=== PATIENT | female | born 1985 | race Caucasian/White ===

== ENCOUNTER 2018-02-11 04:45 | Inpatient (IN) | payer BC ==
[2018-02-11] MEDS ORDERED: Sodium Chloride 0.9% 10 ML Syringe FLUSH PRN (12:34)
[2018-02-11] MEDS ORDERED: Oxytocin/Lactated Ringers 10 UNIT/1,000 ML BAG IV SCH (12:45)
[2018-02-11] MEDS: Misoprostol 25 MCG (1/4 of 100 MCG) Tab VAG SCH (13:15)
[2018-02-11] MEDS ORDERED: Ondansetron 4 MG/2 ML SDV IVPUSH PRN (15:07)
[2018-02-11] MEDS ORDERED: ePHEDrine 50 MG/ML SDV IVPUSH PRN (15:07)
[2018-02-11] MEDS ORDERED: fentaNYL 100 MCG/2 ML SDV EPIDUR PRN (15:07)
--- NOTE | 2018-02-11 15:13 | PCM.PREANE ---
Preanesthetic Assessment - Anesthesia/Transfusion/Family Hx Anesthesia History: No Prior Anesthesia Family History of Anesthesia Reaction: No Transfusion History: No Prior Transfusion(s) Intubation History: Unknown - Review of Systems General: No Symptoms Pulmonary: No Symptoms Cardiovascular: No Symptoms (Gestational HTN) Gastrointestinal: No Symptoms Neurological: No Symptoms Other: Reports: None - Physical Assessment NPO Status Date: 02/11/18 NPO Status Time: 16:45 Pulse: 100 O2 Sat by Pulse Oximetry: 98 Respiratory Rate: 16 Blood Pressure: 124/77 Temperature: 36.9 C Vital Signs: Last Vital Signs Temp 36.9 C 02/11/18 13:30 Pulse 100 02/11/18 13:30 Resp 16 02/11/18 13:30 BP 154/74 H 02/11/18 13:30 Pulse Ox 98 02/11/18 13:30 Height: 1.68 m Weight: 81.42 kg ASA Class: 2 Mental Status: Alert & Oriented x3 Airway Class: Mallampati = 2 Dentition: Reports: Normal Dentition, Caries Thyro-Mental Finger Breadths: 3 Mouth Opening Finger Breadths: 3 ROM/Head Extension: Full Lungs: Clear to Auscultation, Normal Respiratory Effort Cardiovascular: Regular Rate, Regular Rhythm, No Murmurs - Lab Values: Laboratory Last Values WBC 12.74 K/mm3 (3.98-10.04) H 02/11/18 12:55 RBC 4.50 M/mm3 (3.98-5.22) 02/11/18 12:55 Hgb 14.5 gm/L (11.2-15.7) 02/11/18 12:55 Hct 42.7 % (34.1-44.9) 02/11/18 12:55 MCV 94.9 fl (79.4-94.8) H 02/11/18 12:55 MCH 32.2 pg (25.6-32.2) 02/11/18 12:55 MCHC 34.0 g/dl (32.2-35.5) 02/11/18 12:55 RDW Std Deviation 48.2 fL (36.4-46.3) H 02/11/18 12:55 Plt Count 185 K/mm3 (182-369) 02/11/18 12:55 MPV 10.1 fl (9.4-12.3) 02/11/18 12:55 Neut % (Auto) 81.3 % (34.0-71.1) H 02/11/18 12:55 Lymph % (Auto) 11.5 % (19.3-51.7) L 02/11/18 12:55 [place] % (Auto) 5.9 % (4.7-12.5) 02/11/18 12:55 Eos % (Auto) 0.3 (0.7-5.8) L 02/11/18 12:55 Baso % (Auto) 0.2 % (0.1-1.2) 02/11/18 12:55 Neut # (Auto) 10.37 K/mm3 (1.56-6.13) H 02/11/18 12:55 Lymph # (Auto) 1.46 K/mm3 (1.18-3.74) 02/11/18 12:55 [place] # (Auto) 0.75 K/mm3 (0.24-0.36) H 02/11/18 12:55 Eos # (Auto) 0.04 K/mm3 (0.04-0.36) 02/11/18 12:55 Baso # (Auto) 0.02 K/mm3 (0.01-0.08) 02/11/18 12:55 All labs reviewed and noted and within acceptable ranges to proceed with epidural if desired. - Allergies Allergies/Adverse Reactions: Allergies Allergy/AdvReac Type Severity Reaction Status Date / Time cat dander Allergy Sneezing Verified 04/03/16 11:00 lactose AdvReac Stomach Verified 04/03/16 11:02 Ache - Anesthesia Plan Pre-Op Medication Ordered: None - Acknowledgements Anesthesia Type Planned: Epidural Pt an Appropriate Candidate for the Planned Anesthesia: Yes Alternatives and Risks of Anesthesia Discussed w Pt/Guardian: Yes Pt/Guardian Understands and Agrees with Anesthesia Plan: Yes PreAnesthesia Questionnaire - Past Health History Medical/Surgical History: Denies Medical/Surgical History - Infectious Disease History Infectious Disease History: Reports: None - SUBSTANCE USE Smoking Status *Q: Never Smoker Recreational Drug Use History: No - HOME MEDS Home Medications: Home Meds PNV95/Ferrous Fumarate/FA [ Vitamin Tablet] 1 tab PO DAILY 04/03/16 [ History] - CURRENT (IN HOUSE) MEDS Current Meds: Current Medications Lactated Ringer's (Ringers, Lactated) 1,000 mls @ 40 mls/hr IV ASDIRECTED VELVET Oxytocin/Lactated Ringer's (Pitocin In Lr 10 Units/1,000 Ml) 10 unit in 1,000 mls @ 12 mls/hr IV TITRATE VELVET; Protocol Misoprostol (Cytotec) 25 mcg VAG BID VELVET Last Admin: 02/11/18 13:15 Dose: 25 mcg Sodium Chloride (Saline Flush) 10 ml FLUSH ASDIRECTED PRN PRN Reason: Keep Vein Open
--- NOTE | 2018-02-11 17:29 | PCM.LDHP ---
L&D History of Present Illness - General Date of Service: 02/11/18 Admit Problem/Dx: Admission Diagnosis/Problem Admission Diagnosis/Problem 02/11/18 17:23 32 yo at 38 weeks 3days presented to clinic with elevated blood pressures. Home blood pressures 135-160/90. Clinic blood pressure approximately 140 systolic. She describes no headache. She had significant edema yesterday when she woke in the AM. Improved today. Good Movement. No abdominal pain. she has not noted contractions at home. She does have history of induced hypertension without pre eclampsia that did require induction of labor in previous . Based on elevated blood pressures and term gestation at 38 weeks decision was made to proceed with induction of labor for hypertension. Source of Information: Patient History Limitations: Reports: No Limitations - History of Present Illness Location, : Reports: Abdomen Quality: Reports: Ache Severity: Mild - Related Data Allergies/Adverse Reactions: Allergies Allergy/AdvReac Type Severity Reaction Status Date / Time cat dander Allergy Sneezing Verified 04/03/16 11:00 lactose AdvReac Stomach Verified 04/03/16 11:02 Ache Home Medications: Home Meds PNV95/Ferrous Fumarate/FA [ Vitamin Tablet] 1 tab PO DAILY 04/03/16 [ History] Past Medical History - Past Health History Medical/Surgical History: Denies Medical/Surgical History - Infectious Disease History Infectious Disease History: Reports: None Social & Family History - Family History Family Medical History: Noncontributory - Tobacco Use Smoking Status *Q: Never Smoker - Recreational Drug Use Recreational Drug Use: No - Living Situation & Occupation Living situation: Reports: Occupation: Employed H&P Review of Systems - Review of Systems: Review Of Systems: See Below General: Reports: No Symptoms HEENT: Reports: No Symptoms Pulmonary: Reports: No Symptoms Cardiovascular: Reports: No Symptoms Gastrointestinal: Reports: No Symptoms Genitourinary: Reports: No Symptoms Musculoskeletal: Reports: No Symptoms Skin: Reports: No Symptoms Psychiatric: Reports: No Symptoms Neurological: Reports: No Symptoms Hematologic/Lymphatic: Reports: No Symptoms Immunologic: Reports: No Symptoms L&D Exam - Exam Exam: See Below - Vital Signs Vital Signs: Last Vital Signs Temp 36.9 C 02/11/18 16:52 Pulse 100 02/11/18 16:52 Resp 16 02/11/18 16:52 BP 154/74 H 02/11/18 16:52 Pulse Ox 98 02/11/18 16:52 Weight: 81.42 kg - OB Specific Contraction Intensity: Moderate Movement: Active Heart Tones: Present Heart Tones per Min: 140 Heart Rate (FHR) Variability: Moderate (6-25 bmp) Presentation: Vertex - Jiang Score Jiang Score Cervix Position: Midposition Jiang Score Consistency: Soft Jiang Score Effacement: 31-50% Jiang Score Dilation: 3-4 cm Jiang Score Infant's Station: -3 Jiang Score Total: 6 - Exam General: Alert, Oriented GI/Abdominal Exam: Normal Bowel Sounds Genitourinary: Normal external exam Skin: Warm, Dry, Intact - Patient Data Lab Results Last 24 hrs: Laboratory Results - last 24 hr 02/11/18 Range/Units 12:55 WBC 12.74 H (3.98-10.04) K/mm3 RBC 4.50 (3.98-5.22) M/mm3 Hgb 14.5 (11.2-15.7) gm/L Hct 42.7 (34.1-44.9) % MCV 94.9 H (79.4-94.8) fl MCH 32.2 (25.6-32.2) pg MCHC 34.0 (32.2-35.5) g/dl RDW Std Deviation 48.2 H (36.4-46.3) fL Plt Count 185 (182-369) K/mm3 MPV 10.1 (9.4-12.3) fl Neut % (Auto) 81.3 H (34.0-71.1) % Lymph % (Auto) 11.5 L (19.3-51.7) % [place] % (Auto) 5.9 (4.7-12.5) % Eos % (Auto) 0.3 L (0.7-5.8) Baso % (Auto) 0.2 (0.1-1.2) % Neut # (Auto) 10.37 H (1.56-6.13) K/mm3 Lymph # (Auto) 1.46 (1.18-3.74) K/mm3 [place] # (Auto) 0.75 H (0.24-0.36) K/mm3 Eos # (Auto) 0.04 (0.04-0.36) K/mm3 Baso # (Auto) 0.02 (0.01-0.08) K/mm3 Result Diagrams: 02/11/18 12:55 - Problem List (1) induced hypertension SNOMED Code(s): 88103098 ICD Code: O13.9 - GESTATIONAL HTN W/O SIGNIFICANT PROTEINURIA, UNSP TRIMESTER Status: Acute Current Visit: Yes (2) Encounter for induction of labor SNOMED Code(s): 497062693 ICD Code: Z34.90 - ENCNTR FOR SUPRVSN OF NORMAL , UNSP, UNSP TRIMESTER Status: Acute Current Visit: Yes Problem List Initiated/Reviewed/Updated: Yes Orders Last 24hrs: Active Orders 24 hr Category Date Time Status Communication Order [RC] ASDIRECTED Care 02/11/18 12:34 Active Communication Order [RC] ASDIRECTED Care 02/11/18 12:34 Active Communication Order [RC] ASDIRECTED Care 02/11/18 12:34 Active Monitoring [RC] INTERMITTENT Care 02/11/18 12:34 Active Notify Provider [RC] ASDIRECTED Care 02/11/18 12:34 Active Notify Provider [RC] ASDIRECTED Care 02/11/18 15:07 Active Oxygen Therapy [RC] ASDIRECTED Care 02/11/18 15:07 Active Peripheral IV Care [RC] . DIRECTED Care 02/11/18 12:34 Active Pulse Oximetry [RC] ASDIRECTED Care 02/11/18 15:07 Active Vital Signs [RC] ASDIRECTED Care 02/11/18 12:34 Active Regular Diet [DIET] Diet 02/11/18 Lunch Active Bupivacaine/fentaNYL/NS [fentaNYL/Bupivacaine/NS 2.5 Med 02/11/18 15:15 Active MCG-0.1% 50 ML] 50 ml EPIDUR ASDIRECTED Lactated Ringers [Ringers, Lactated] 1,000 ml Med 02/11/18 12:45 Active IV ASDIRECTED Misoprostol [Cytotec] Med 02/11/18 12:45 Active 25 mcg VAG BID Ondansetron [Zofran] Med 02/11/18 15:07 Active 4 mg IVPUSH ONETIME PRN Oxytocin/Lactated Ringers [Pitocin in LR 10 Units/1,000 Med 02/11/18 12:45 Active ML] 10 unit in 1,000 ml IV TITRATE Sodium Chloride 0.9% [Saline Flush] Med 02/11/18 12:34 Active 10 ml FLUSH ASDIRECTED PRN ePHEDrine [ePHEDrine Sulfate] Med 02/11/18 15:07 Active 5 mg IVPUSH ASDIRECTED PRN Peripheral IV Insertion Adult [OM.PC] Routine Oth 02/11/18 12:34 Ordered Saline Lock Insert [OM.PC] Routine Oth 02/11/18 12:34 Ordered Medication Orders Ephedrine Sulfate (Ephedrine Sulfate) 5 mg IVPUSH ASDIRECTED PRN PRN Reason: Hypotension Fentanyl/Bupivacaine HCl (Fentanyl/Bupivacaine/Ns 2.5 Mcg-0.1% 50 Ml) 50 ml EPIDUR ASDIRECTED VELVET Lactated Ringer's (Ringers, Lactated) 1,000 mls @ 40 mls/hr IV ASDIRECTED VELVET Oxytocin/Lactated Ringer's (Pitocin In Lr 10 Units/1,000 Ml) 10 unit in 1,000 mls @ 12 mls/hr IV TITRATE VELVET; Protocol Misoprostol (Cytotec) 25 mcg VAG BID VELVET Last Admin: 02/11/18 13:15 Dose: 25 mcg Ondansetron HCl (Zofran) 4 mg IVPUSH ONETIME PRN PRN Reason: Nausea/Vomiting Sodium Chloride (Saline Flush) 10 ml FLUSH ASDIRECTED PRN PRN Reason: Keep Vein Open Assessment/Plan Comment:: Assessment: 32 yo at 38 weeks 3 days gestation with induced hypertension. Plan: blood pressures increasing to 160/90 at home, 140/80 in clinic. decision made to start induction of labor with cytotec, she has recieved one dose and dilated to 3 cm. will proceed to pitocin when contraction pattern slows. Pt desires epidural. GBS negative. anticipate vaginal delivery.
[2018-02-11] MEDS: Lactated Ringers 1,000 ML IV SCH ×2 (21:19→23:56)
[2018-02-11] MEDS: fentaNYL/Bupivacaine in NS PF 2.5 MCG/ML-0.1% 50 ML Syringe EPIDUR SCH (23:31)
[2018-02-11] MEDS ORDERED: fentaNYL 100 MCG/2 ML SDV ONE (23:33)
[2018-02-12] MEDS ORDERED: Bupivacaine 0.25% 10 ML SDV ONE (01:00)
[2018-02-12] MEDS: fentaNYL/Bupivacaine in NS PF 2.5 MCG/ML-0.1% 50 ML Syringe EPIDUR SCH (03:33)
[2018-02-12] MEDS ORDERED: Acetaminophen 325 MG Tab PO PRN (05:06)
[2018-02-12] MEDS ORDERED: Lanolin 100% Cream 7 GM Tube TOP PRN (05:06)
[2018-02-12] MEDS ORDERED: Witch Hazel Medicated Pads 100/Jar TOP PRN (05:06)
[2018-02-12] MEDS ORDERED: Ibuprofen 800 MG Tab PO PRN (05:06)
[2018-02-12] MEDS ORDERED: Docusate Sodium 100 MG Cap PO PRN (05:06)
[2018-02-12] MEDS ORDERED: Benzocaine/Menthol 20%-0.5% Spray 56 GM Canister TOP PRN (05:06)
--- NOTE | 2018-02-12 05:21 | PCM.DEL ---
L & D Note - General Info Date of Service: 02/12/18 Mother's Due Date: 02/22/18 - Delivery Note Cervical Ripening Method: Prostaglandin E2 Delivery Outcome: Livebirth Infant Delivery Method: Spontaneous Vaginal Delivery-Single Infant Delivery Mode: Spontaneous Presentation: Vertex Nuchal Cord: Present Anesthesia Type: Epidural Amniotic Fluid Description: Clear Episiotomy Type: None Laceration: 2nd Degree Suture type: Vicryl Suture size: 3-0 Placenta: Intact, Spontaneous Cord: 3 Vessels Estimated Blood Loss: 200 Resuscitation Needed: No [place]: Bulb Syringe, [place] Used - General Info Date of Service: 02/12/18 Admission Dx/Problem (Free Text): On 02/12/2018 this 32 yo female under epidural anesthesia delivered a viable 7lb 10 ounce male at 445 am at 39 weeks 4 days gestation. Apgars 9 and 9. Delivery was via to a sterile field. Nuchal cord was present, not tight, not reduced at delivery. was placed on mom's abdomen with nursery nurse. Cord was clamped and cut after approximately one minutes. Cord blood was obtained. An intact placenta with a 3 vessel cord delviered spontaneously at 0451. 10 units of pitocin were administered IV in NS. Vagina explored. 2nd degree midline laceration noted and repaired in the usual fashion with 3-0 vicryl sutures. 200 cc EBL. Infant and mother in delivery room in stable condition at this time. care complicated by late onset hypertension, leading to induction of labor Mother GBS Neg, Apos, STD neg Functional Status: Reports: Pain Controlled - Patient Data Vitals - Most Recent: Last Vital Signs Temp 36.9 C 02/11/18 16:52 Pulse 100 02/11/18 16:52 Resp 16 02/11/18 16:52 BP 154/74 H 02/11/18 16:52 Pulse Ox 98 02/11/18 16:52 Weight - Most Recent: 81.42 kg I&O - Last 24 Hours: Intake & Output 02/11/18 02/11/18 02/12/18 14:59 22:59 06:59 Intake Total 0 Balance 0 Lab Results Last 24 Hours: Laboratory Results - last 24 hr 02/11/18 Range/Units 12:55 WBC 12.74 H (3.98-10.04) K/mm3 RBC 4.50 (3.98-5.22) M/mm3 Hgb 14.5 (11.2-15.7) gm/L Hct 42.7 (34.1-44.9) % MCV 94.9 H (79.4-94.8) fl MCH 32.2 (25.6-32.2) pg MCHC 34.0 (32.2-35.5) g/dl RDW Std Deviation 48.2 H (36.4-46.3) fL Plt Count 185 (182-369) K/mm3 MPV 10.1 (9.4-12.3) fl Neut % (Auto) 81.3 H (34.0-71.1) % Lymph % (Auto) 11.5 L (19.3-51.7) % [place] % (Auto) 5.9 (4.7-12.5) % Eos % (Auto) 0.3 L (0.7-5.8) Baso % (Auto) 0.2 (0.1-1.2) % Neut # (Auto) 10.37 H (1.56-6.13) K/mm3 Lymph # (Auto) 1.46 (1.18-3.74) K/mm3 [place] # (Auto) 0.75 H (0.24-0.36) K/mm3 Eos # (Auto) 0.04 (0.04-0.36) K/mm3 Baso # (Auto) 0.02 (0.01-0.08) K/mm3 Med Orders - Current: Current Medications Acetaminophen (Tylenol) 650 mg PO Q4H PRN PRN Reason: mild pain or fever Benzocaine/Menthol (Dermoplast Pain Relief [place]) 0 gm TOP ASDIRECTED PRN PRN Reason: Perineal Comfort Measure Docusate Sodium (Colace) 100 mg PO BID PRN PRN Reason: Constipation Emollient Ointment (Lansinoh Hpa) 0 gm TOP ASDIRECTED PRN PRN Reason: Sore Nipples Ephedrine Sulfate (Ephedrine Sulfate) 5 mg IVPUSH ASDIRECTED PRN PRN Reason: Hypotension Fentanyl/Bupivacaine HCl (Fentanyl/Bupivacaine/Ns 2.5 Mcg-0.1% 50 Ml) 50 ml EPIDUR ASDIRECTED [facility] Last Admin: 02/12/18 03:33 Dose: 50 ml Lactated Ringer's (Ringers, Lactated) 1,000 mls @ 40 mls/hr IV ASDIRECTED VELVET Last Admin: 02/11/18 23:56 Dose: 40 mls/hr Oxytocin/Lactated Ringer's (Pitocin In Lr 10 Units/1,000 Ml) 10 unit in 1,000 mls @ 12 mls/hr IV TITRATE VELVET; Protocol Last Admin: 02/11/18 21:19 Dose: 2 munits/min, 12 mls/hr Ibuprofen (Motrin) 800 mg PO Q6H PRN PRN Reason: Mild pain or fever Misoprostol (Cytotec) 25 mcg VAG BID VELVET Last Admin: 02/11/18 13:15 Dose: 25 mcg Ondansetron HCl (Zofran) 4 mg IVPUSH ONETIME PRN PRN Reason: Nausea/Vomiting Sodium Chloride (Saline Flush) 10 ml FLUSH ASDIRECTED PRN PRN Reason: Keep Vein Open Witch Gauri (Tucks) 1 pad TOP ASDIRECTED PRN PRN Reason: Hemorrhoid pain Discontinued Medications Fentanyl (Sublimaze) 100 mcg EPIDUR Q3H PRN PRN Reason: Pain Stop: 02/11/18 16:00 Last Admin: 02/11/18 23:33 Dose: 100 mcg Fentanyl (Sublimaze) Confirm Administered Dose 100 mcg .ROUTE .STK-MED ONE Stop: 02/11/18 23:34 - Problem List & Annotations (1) induced hypertension SNOMED Code(s): 26975999 Code(s): O13.9 - GESTATIONAL HTN W/O SIGNIFICANT PROTEINURIA, UNSP TRIMESTER Status: Acute Current Visit: Yes (2) Encounter for induction of labor SNOMED Code(s): 244106763 Code(s): Z34.90 - ENCNTR FOR SUPRVSN OF NORMAL , UNSP, UNSP TRIMESTER Status: Acute Current Visit: Yes - Problem List Review Problem List Initiated/Reviewed/Updated: Yes - My Orders Last 24 Hours: My Active Orders 02/11/18 12:34 Communication Order [RC] ASDIRECTED Communication Order [RC] ASDIRECTED Communication Order [RC] ASDIRECTED Monitoring [RC] INTERMITTENT Notify Provider [RC] ASDIRECTED Peripheral IV Care [RC] . DIRECTED Vital Signs [RC] ASDIRECTED Sodium Chloride 0.9% [Saline Flush] 10 ml FLUSH ASDIRECTED PRN Peripheral IV Insertion Adult [OM.PC] Routine Saline Lock Insert [OM.PC] Routine 02/11/18 12:45 Lactated Ringers [Ringers, Lactated] 1,000 ml IV ASDIRECTED Misoprostol [Cytotec] 25 mcg VAG BID Oxytocin/Lactated Ringers [Pitocin in LR 10 Units/1,000 ML] 10 unit in 1,000 ml IV TITRATE 02/11/18 Lunch Regular Diet [DIET] 02/12/18 05:05 Patient Status Manage Transfer [TRANSFER] Routine 02/12/18 05:06 Acetaminophen [Tylenol] 650 mg PO Q4H PRN Benzocaine/Menthol [Dermoplast Pain Relief [place]] See Dose Instructions TOP ASDIRECTED PRN Docusate Sodium [Colace] 100 mg PO BID PRN Ibuprofen [Motrin] 800 mg PO Q6H PRN Lanolin [Lansinoh HPA] See Dose Instructions TOP ASDIRECTED PRN Witch Gauri [Tucks] 1 pad TOP ASDIRECTED PRN 02/12/18 05:07 Activity as Tolerated [RC] PER UNIT ROUTINE Vital Signs [RC] ASDIRECTED Assess Lochia [WOMSER] Per Unit Routine Assess Uterine Involution [WOMSER] Per Unit Routine Breast Pump [WOMSER] Per Unit Routine Medication Administration Instruction [OM.PC] Routine Perineal Care [OM.PC] Per Unit Routine Sitz Bath [OM.PC] Per Unit Routine 02/12/18 05:15 Heat Therapy [OM.PC] PRN 02/13/18 05:11 HEMOGLOBIN/HEMATOCRIT,HH [HEME] AM 02/13/18 05:15 Heat Therapy [OM.PC] PRN
[2018-02-12] MEDS: Misoprostol 25 MCG (1/4 of 100 MCG) Tab VAG SCH (08:27)
--- NOTE | 2018-02-12 12:48 | PCM48HPAN ---
Post Anesthesia Note - EVALUATION WITHIN 48HRS OF ANESTHETIC Vital Signs in Normal Range: Yes Patient Participated in Evaluation: Yes Respiratory Function Stable: Yes Airway Patent: Yes Cardiovascular Function Stable: Yes Hydration Status Stable: Yes Pain Control Satisfactory: Yes Nausea and Vomiting Control Satisfactory: Yes Mental Status Recovered: Yes
--- NOTE | 2018-02-12 16:59 | PCM.SN ---
- Free Text/Narrative Note: Pt doing well. Pain controlled. Lochia normal. No concerns. Blood pressures stable. No new orders at this time.
--- NOTE | 2018-02-13 07:32 | PCM.PNPP ---
- General Info Date of Service: 02/13/18 Functional Status: Reports: Pain Controlled, Tolerating Diet, Ambulating, Urinating - Review of Systems General: Reports: No Symptoms HEENT: Reports: No Symptoms. Denies: Headaches, Visual Changes Pulmonary: Reports: No Symptoms Cardiovascular: Reports: No Symptoms Gastrointestinal: Reports: No Symptoms Genitourinary: Reports: No Symptoms Musculoskeletal: Reports: No Symptoms Neurological: Reports: No Symptoms - Patient Data Vital Signs - Most Recent: Last Vital Signs Temp 36.9 C 02/13/18 05:57 Pulse 80 02/13/18 05:57 Resp 15 02/13/18 05:57 BP 122/69 02/13/18 05:57 Pulse Ox 98 02/13/18 05:57 Weight - Most Recent: 81.42 kg I&O - Last 24 Hours: Intake & Output 02/12/18 02/13/18 02/13/18 22:59 06:59 14:59 Intake Total 180 Balance 180 Lab Results - Last 24 Hours: Laboratory Results - last 24 hr 02/13/18 Range/Units 06:13 Hgb 13.9 (11.2-15.7) gm/L Hct 41.5 (34.1-44.9) % Med Orders - Current: Current Medications Acetaminophen (Tylenol) 650 mg PO Q4H PRN PRN Reason: mild pain or fever Benzocaine/Menthol (Dermoplast Pain Relief [place]) 0 gm TOP ASDIRECTED PRN PRN Reason: Perineal Comfort Measure Docusate Sodium (Colace) 100 mg PO BID PRN PRN Reason: Constipation Emollient Ointment (Lansinoh Hpa) 0 gm TOP ASDIRECTED PRN PRN Reason: Sore Nipples Ibuprofen (Motrin) 800 mg PO Q6H PRN PRN Reason: Mild pain or fever Last Admin: 02/12/18 23:30 Dose: 800 mg Witch Gauri (Tucks) 1 pad TOP ASDIRECTED PRN PRN Reason: Hemorrhoid pain Discontinued Medications Bupivacaine HCl (Sensorcaine-Mpf 0.25%) 10 ml .ROUTE .STK-MED ONE Stop: 02/12/18 01:01 Ephedrine Sulfate (Ephedrine Sulfate) 5 mg IVPUSH ASDIRECTED PRN PRN Reason: Hypotension Fentanyl (Sublimaze) 100 mcg EPIDUR Q3H PRN PRN Reason: Pain Stop: 02/11/18 16:00 Last Admin: 02/11/18 23:33 Dose: 100 mcg Fentanyl (Sublimaze) Confirm Administered Dose 100 mcg .ROUTE .STK-MED ONE Stop: 02/11/18 23:34 Last Admin: 02/12/18 08:27 Dose: Not Given Fentanyl/Bupivacaine HCl (Fentanyl/Bupivacaine/Ns 2.5 Mcg-0.1% 50 Ml) 50 ml EPIDUR ASDIRECTED VELVET Last Admin: 02/12/18 03:33 Dose: 50 ml Lactated Ringer's (Ringers, Lactated) 1,000 mls @ 40 mls/hr IV ASDIRECTED VELVET Last Admin: 02/11/18 23:56 Dose: 40 mls/hr Oxytocin/Lactated Ringer's (Pitocin In Lr 10 Units/1,000 Ml) 10 unit in 1,000 mls @ 12 mls/hr IV TITRATE VELVET; Protocol Last Admin: 02/11/18 21:19 Dose: 2 munits/min, 12 mls/hr Misoprostol (Cytotec) 25 mcg VAG BID VELVET Last Admin: 02/12/18 08:27 Dose: Not Given Ondansetron HCl (Zofran) 4 mg IVPUSH ONETIME PRN PRN Reason: Nausea/Vomiting Sodium Chloride (Saline Flush) 10 ml FLUSH ASDIRECTED PRN PRN Reason: Keep Vein Open - Interaction Disposition, : [place] in Room with Family Infant Interaction: Holding Infant Infant Feeding: Breastfed ; Nursed Well Support Person: - Recovery Exam Fundal Tone: Firm Fundal Level: 1 Fingerbreadths Below Umbilicus Fundal Placement: Midline Lochia Amount: Small Lochia Color: Rubra/Red Bladder Status: Voiding Urinary Elimination: Voided - Exam General: Alert, Oriented, Cooperative GI/Abdominal Exam: Soft, Non-Tender Extremities: Normal Inspection Skin: Warm, Dry, Intact - Problem List & Annotations (1) Encounter for induction of labor SNOMED Code(s): 262757817 Code(s): Z34.90 - ENCNTR FOR SUPRVSN OF NORMAL , UNSP, UNSP TRIMESTER Status: Acute Current Visit: Yes (2) induced hypertension SNOMED Code(s): 91918111 Code(s): O13.9 - GESTATIONAL HTN W/O SIGNIFICANT PROTEINURIA, UNSP TRIMESTER Status: Acute Current Visit: Yes Qualifiers: Trimester: third trimester Qualified Code(s): O13.3 - Gestational [ -induced] hypertension without significant proteinuria, third trimester (3) Vaginal delivery SNOMED Code(s): 626090778 Code(s): O80 - ENCOUNTER FOR FULL-TERM UNCOMPLICATED DELIVERY Status: Acute Current Visit: Yes - Problem List Review Problem List Initiated/Reviewed/Updated: Yes - Assessment Assessment:: PPD#1 from after IOL for gestational HTN - Plan Plan:: * Routine cares * Continue breast feeding * Will discharge home today * BP's appropriate since delivery. BP check in clinic in 1 week
--- NOTE | 2018-02-13 07:35 | PCM.DCSUM1 ---
Discharge Summary - Discharge Data Discharge Date: 02/13/18 Discharge Disposition: Home, Self-Care 01 Condition: Good - Discharge Diagnosis/Problem(s) (1) Vaginal delivery SNOMED Code(s): 218683045 ICD Code: O80 - ENCOUNTER FOR FULL-TERM UNCOMPLICATED DELIVERY Status: Acute Current Visit: Yes (2) Encounter for induction of labor SNOMED Code(s): 336367576 ICD Code: Z34.90 - ENCNTR FOR SUPRVSN OF NORMAL , UNSP, UNSP TRIMESTER Status: Acute Current Visit: Yes (3) induced hypertension SNOMED Code(s): 69626707 ICD Code: O13.9 - GESTATIONAL HTN W/O SIGNIFICANT PROTEINURIA, UNSP TRIMESTER Status: Acute Current Visit: Yes Qualifiers: Trimester: third trimester Qualified Code(s): O13.3 - Gestational [ -induced] hypertension without significant proteinuria, third trimester - Patient Summary/Data Complications: None Consults: None Recommended Follow-up Testing/Procedures: Follow up in 1 week for BP check and in 5-6 weeks for check Hospital Course: 32 y/o at 38 3/7 wks who was found to have mild range BP's in clinic. Brought to L&D for IOL. She did well with this and underwent an uncomplicated . See delivery note. she did well. Discharged home on PPD#1 - Patient Instructions Diet: Regular Diet as Tolerated Activity: As Tolerated Activity, Other: Pelvic Rest for 6 weeks Driving: May Drive Today Showering/Bathing: May Shower Showering/Bathing, Other: May Bathe Notify Provider of: Fever, Increased Pain, Swelling and Redness, Drainage, Nausea and/or Vomiting - Discharge Plan Home Medications: Home Meds PNV95/Ferrous Fumarate/FA [ Vitamin Tablet] 1 tab PO DAILY 04/03/16 [ History] Docusate Sodium [Colace] 100 mg PO BID PRN cap 02/13/18 [Rx] Referrals: Serena Chambers MD [Primary Care Provider] - (1 week for BP check 5-6 weeks for check) - Discharge Summary/Plan Comment DC Time >30 min.: No - Patient Data Vitals - Most Recent: Last Vital Signs Temp 36.9 C 02/13/18 05:57 Pulse 80 02/13/18 05:57 Resp 15 02/13/18 05:57 BP 122/69 02/13/18 05:57 Pulse Ox 98 02/13/18 05:57 Weight - Most Recent: 81.42 kg I&O - Last 24 hours: Intake & Output 02/12/18 02/13/18 02/13/18 22:59 06:59 14:59 Intake Total 180 Balance 180 Lab Results - Last 24 hrs: Laboratory Results - last 24 hr 02/13/18 Range/Units 06:13 Hgb 13.9 (11.2-15.7) gm/L Hct 41.5 (34.1-44.9) % Med Orders - Current: Current Medications Acetaminophen (Tylenol) 650 mg PO Q4H PRN PRN Reason: mild pain or fever Benzocaine/Menthol (Dermoplast Pain Relief [place]) 0 gm TOP ASDIRECTED PRN PRN Reason: Perineal Comfort Measure Docusate Sodium (Colace) 100 mg PO BID PRN PRN Reason: Constipation Emollient Ointment (Lansinoh Hpa) 0 gm TOP ASDIRECTED PRN PRN Reason: Sore Nipples Ibuprofen (Motrin) 800 mg PO Q6H PRN PRN Reason: Mild pain or fever Last Admin: 02/12/18 23:30 Dose: 800 mg Witch Gauri (Tucks) 1 pad TOP ASDIRECTED PRN PRN Reason: Hemorrhoid pain Discontinued Medications Bupivacaine HCl (Sensorcaine-Mpf 0.25%) 10 ml .ROUTE .STK-MED ONE Stop: 02/12/18 01:01 Ephedrine Sulfate (Ephedrine Sulfate) 5 mg IVPUSH ASDIRECTED PRN PRN Reason: Hypotension Fentanyl (Sublimaze) 100 mcg EPIDUR Q3H PRN PRN Reason: Pain Stop: 02/11/18 16:00 Last Admin: 02/11/18 23:33 Dose: 100 mcg Fentanyl (Sublimaze) Confirm Administered Dose 100 mcg .ROUTE .STK-MED ONE Stop: 02/11/18 23:34 Last Admin: 02/12/18 08:27 Dose: Not Given Fentanyl/Bupivacaine HCl (Fentanyl/Bupivacaine/Ns 2.5 Mcg-0.1% 50 Ml) 50 ml EPIDUR ASDIRECTED VELVET Last Admin: 02/12/18 03:33 Dose: 50 ml Lactated Ringer's (Ringers, Lactated) 1,000 mls @ 40 mls/hr IV ASDIRECTED VELVET Last Admin: 02/11/18 23:56 Dose: 40 mls/hr Oxytocin/Lactated Ringer's (Pitocin In Lr 10 Units/1,000 Ml) 10 unit in 1,000 mls @ 12 mls/hr IV TITRATE VELVET; Protocol Last Admin: 02/11/18 21:19 Dose: 2 munits/min, 12 mls/hr Misoprostol (Cytotec) 25 mcg VAG BID [facility] Last Admin: 02/12/18 08:27 Dose: Not Given Ondansetron HCl (Zofran) 4 mg IVPUSH ONETIME PRN PRN Reason: Nausea/Vomiting Sodium Chloride (Saline Flush) 10 ml FLUSH ASDIRECTED PRN PRN Reason: Keep Vein Open
[2018-02-13 12:58] VITALS: BP 130/70
== END 2018-02-13 10:00 | disposition home or self-care (01) | DRG 560 ==
LOC: JD.OB 04:45 → OBSVTOIN 02-12 04:45 → JD.OB 02-12 04:45
PROVIDERS: ADMIT Family Medicine; ATTEND Family Medicine
PROC: 10E0XZZ Delivery of Products of Conception, External Approach (ICD-10-PCS; principal; 2018-02-12)
PROC: 6A550ZT Pheresis of Cord Blood Stem Cells, Single (ICD-10-PCS; 2018-02-12)
PROC: 0KQM0ZZ Repair Perineum Muscle, Open Approach (ICD-10-PCS; 2018-02-12)
PROC: 3E0P7VZ Introduction of Hormone into Female Reproductive, Via Natural or Artificial Opening (ICD-10-PCS; 2018-02-12)
PROC: 3E033VJ Introduction of Other Hormone into Peripheral Vein, Percutaneous Approach (ICD-10-PCS; 2018-02-12)
PROC: 00HU33Z Insertion of Infusion Device into Spinal Canal, Percutaneous Approach (ICD-10-PCS; 2018-02-12)
PROC: 3E0R3BZ Introduction of Anesthetic Agent into Spinal Canal, Percutaneous Approach (ICD-10-PCS; 2018-02-12)
DX: O13.4 Gestational [pregnancy-induced] hypertension without significant proteinuria, complicating childbirth (principal); O69.81X0 Labor and delivery complicated by cord around neck, without compression, not applicable or unspecified; O70.1 Second degree perineal laceration during delivery; Z3A.38 38 weeks gestation of pregnancy; Z37.0 Single live birth; Z88.8 Allergy status to other drugs, medicaments and biological substances; Z91.048 Other nonmedicinal substance allergy status
CPT/HCPCS: 36415; 51702; 59025; 59300; 59409; 85014; 85018; 85025; A9270-GY; J2590; J3010; J7120

== ENCOUNTER 2020-01-10 07:07 | Inpatient (IN) | payer BC ==
[~2020-01-10 07:07] MED LIST: Bupivacaine 0.25% 10 ML SDV ONE
[2020-01-10] MEDS ORDERED: Acetaminophen 325 MG Tab PO PRN ×2 (07:08→21:28)
[2020-01-10] MEDS ORDERED: Ondansetron 4 MG/2 ML SDV IVPUSH PRN (07:08)
[2020-01-10] MEDS ORDERED: Sodium Chloride 0.9% 10 ML Syringe FLUSH PRN (07:08)
--- NOTE | 2020-01-10 07:12 | PCM.LDHP ---
L&D History of Present Illness - General Date of Service: 01/10/20 Admit Problem/Dx: Patient Status Order with Admit Dx/Problem 01/10/20 07:08 Patient Status [ADT] Routine Admission Diagnosis/Problem Admission Diagnosis/Problem Pre-eclampsia Source of Information: Patient History Limitations: Reports: No Limitations - History of Present Illness Introduction:: Patient is a 34 y/o at 37 0/7 wks who presents for IOL for preeclampsia. Doing well today. No headaches, vision changes. Getting good FM. 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): Psychiatric History: Reports: Anxiety, Eating Disorders - Past Surgical History Other Surgical History Comment: None Social & Family History - Family History Family Medical History: Noncontributory - Tobacco Use Smoking Status *Q: Never Smoker - Alcohol Use Alcohol Use History: No - Recreational Drug Use Recreational Drug Use: No - Living Situation & Occupation Living situation: Reports: Occupation: Employed H&P Review of Systems - Review of Systems: Review Of Systems: See Below General: Reports: No Symptoms Pulmonary: Reports: No Symptoms Cardiovascular: Reports: No Symptoms Gastrointestinal: Reports: No Symptoms Genitourinary: Reports: No Symptoms Musculoskeletal: Reports: No Symptoms Psychiatric: Reports: No Symptoms Neurological: Reports: No Symptoms L&D Exam - Exam Exam: See Below - OB Specific Contraction Intensity: Irritability Movement: Active Heart Tones: Present Heart Tones per Min: 140 Heart Rate (FHR) Variability: Moderate (6-25 bmp) Presentation: Vertex - Jiang Score Jiang Score Cervix Position: Posterior Jiang Score Consistency: Soft Jiang Score Effacement: 51-70% Jiang Score Dilation: 1-2 cm Jiang Score 's Station: -3 Jiang Score Total: 5 - Exam General: Alert, Oriented, Cooperative Lungs: Clear to Auscultation, Normal Respiratory Effort Cardiovascular: Regular Rate, Regular Rhythm GI/Abdominal Exam: Soft, Non-Tender Genitourinary: Normal external exam Extremities: Normal Inspection Skin: Warm, Dry, Intact - Patient Data Result Diagrams: 01/10/20 07:50 01/10/20 07:50 - Problem List (1) 37 weeks gestation of SNOMED Code(s): 93058939 ICD Code: Z3A.37 - 37 WEEKS GESTATION OF Status: Acute Current Visit: Yes (2) Preeclampsia SNOMED Code(s): 773580744 ICD Code: O14.90 - UNSPECIFIED PRE-ECLAMPSIA, UNSPECIFIED TRIMESTER Status : Acute Current Visit: Yes Qualifiers: Trimester: third trimester Qualified Code(s): O14.93 - Unspecified pre- eclampsia, third trimester (3) Rubella non-immune status, antepartum SNOMED Code(s): 108853667 ICD Code: O99.89 - OTH DISEASES AND CONDITIONS COMPL PREG/CHLDBRTH; Z28.3 - UNDERIMMUNIZATION STATUS Status: Acute Current Visit: Yes Problem List Initiated/Reviewed/Updated: Yes Orders Last 24hrs: Active Orders 24 hr Category Date Time Status Patient Status [ADT] Routine ADT 01/10/20 07:08 Ordered Communication Order [RC] ASDIRECTED Care 01/10/20 07:08 Ordered Communication Order [RC] ASDIRECTED Care 01/10/20 07:08 Ordered Communication Order [RC] ASDIRECTED Care 01/10/20 07:08 Ordered Heart Tones [RC] ASDIRECTED Care 01/10/20 07:09 Ordered Monitoring [RC] INTERMITTENT Care 01/10/20 07:08 Ordered Non Stress Test [RC] PER UNIT ROUTINE Care 01/10/20 07:08 Ordered Notify Provider [RC] ASDIRECTED Care 01/10/20 07:08 Ordered Notify Provider [RC] PRN Care 01/10/20 07:08 Ordered Peripheral IV Care [RC] . DIRECTED Care 01/10/20 07:09 Ordered Up ad Jamila [RC] ASDIRECTED Care 01/10/20 07:09 Ordered Vaginal Exam [RC] ASDIRECTED Care 01/10/20 07:08 Ordered Vital Signs [RC] ASDIRECTED Care 01/10/20 07:08 Ordered Regular Diet [DIET] Diet 01/10/20 Breakfast Ordered ALANINE AMINOTRANSFERASE,ALT [CHEM] Routine Lab 01/10/20 07:08 Ordered ASPARTATE AMNIOTRANSFERASE,AST [CHEM] Routine Lab 01/10/20 07:08 Ordered CBC W/O DIFF,HEMOGRAM [HEME] Routine Lab 01/10/20 07:08 Ordered CREATININE W/GFR [CHEM] Routine Lab 01/10/20 07:08 Ordered PROTEIN/CREATININE RATIO,URINE [URCHEM] Routine Lab 01/10/20 07:08 Ordered RAPID PLASMA REAGIN,RPR [CHEM] Routine Lab 01/10/20 07:08 Ordered TYPE AND SCREEN [BBK] Routine Lab 01/10/20 07:08 Ordered Acetaminophen [Tylenol] Med 01/10/20 07:08 Ordered 650 mg PO Q4H PRN Lactated Ringers [Ringers, Lactated] 1,000 ml Med 01/10/20 07:15 Ordered IV ASDIRECTED Ondansetron [Zofran] Med 01/10/20 07:08 Ordered 4 mg IVPUSH Q4H PRN Oxytocin/Lactated Ringers [Pitocin in LR 10 Units/1,000 Med 01/10/20 07:15 Ordered ML] 10 unit in 1,000 ml IV .CONTINUOUS Oxytocin/Lactated Ringers [Pitocin in LR 10 Units/1,000 Med 01/10/20 07:15 Ordered ML] 10 unit in 1,000 ml IV TITRATE Sodium Chloride 0.9% [Saline Flush] Med 01/10/20 07:08 Ordered 10 ml FLUSH ASDIRECTED PRN Electronic Heart Tones Ext w TOCO [WOMSER] Oth 01/10/20 07:08 Ordered Routine Electronic Heart Tones Internal [WOMSER] Per Unit Ot 01/10/20 07:08 Ordered Routine Peripheral IV Insertion Adult [OM.PC] Routine Oth 01/10/20 07:08 Ordered Resuscitation Status Routine Resus Stat 01/10/20 07:08 Ordered Assessment/Plan Comment:: * Labs to be done including ASK, ALT, Creatinine, Urine protein / creatinine ratio * Monitor BP's closely * GBS negative, no need for antibiotics * Pitocin to be started. AROM when able * Pain management per patient preference * Anticipate
[2020-01-10] MEDS ORDERED: Oxytocin/Lactated Ringers 10 UNIT/1,000 ML BAG IV SCH (07:15)
[2020-01-10] MEDS ORDERED: diphenhydrAMINE 50 MG/ML SDV IVPUSH PRN (08:12)
[2020-01-10] MEDS ORDERED: fentaNYL 100 MCG/2 ML SDV EPIDUR PRN (08:12)
[2020-01-10] MEDS ORDERED: ePHEDrine 50 MG/ML SDV IVPUSH PRN (08:12)
[2020-01-10] MEDS: Lactated Ringers 1,000 ML IV SCH ×2 (08:20→13:14)
[2020-01-10] MEDS: Oxytocin/Lactated Ringers 10 UNIT/1,000 ML BAG IV SCH ×2 (08:21→20:29)
--- NOTE | 2020-01-10 10:08 | PCM.PREANE ---
Preanesthetic Assessment - Procedure Proposed Procedure: hira - Anesthesia/Transfusion/Family Hx Anesthesia History: Prior Anesthesia Without Reaction Family History of Anesthesia Reaction: No Transfusion History: No Prior Transfusion(s) Intubation History: Unknown - Review of Systems General: No Symptoms Pulmonary: No Symptoms Cardiovascular: No Symptoms Gastrointestinal: No Symptoms Neurological: No Symptoms Other: Reports: None - Physical Assessment Vital Signs: Last Vital Signs Temp 98.6 F 01/10/20 07:08 Pulse 125 H 01/10/20 07:08 Resp 18 01/10/20 07:08 BP 125/84 01/10/20 07:08 Pulse Ox 99 01/10/20 07:08 Height: 5 ft 6 in Weight: 78.471 kg ASA Class: 2 Mental Status: Alert & Oriented x3 Airway Class: Mallampati = 1 Dentition: Reports: Normal Dentition Thyro-Mental Finger Breadths: 3 Mouth Opening Finger Breadths: 3 ROM/Head Extension: Full Lungs: Clear to Auscultation, Normal Respiratory Effort Cardiovascular: Regular Rate, Regular Rhythm - Lab Values: Laboratory Last Values WBC 11.35 K/mm3 (3.98-10.04) H 01/10/20 07:50 RBC 4.43 M/mm3 (3.98-5.22) 01/10/20 07:50 Hgb 13.9 gm/dl (11.2-15.7) 01/10/20 07:50 Hct 41.8 % (34.1-44.9) 01/10/20 07:50 MCV 94.4 fl (79.4-94.8) 01/10/20 07:50 MCH 31.4 pg (25.6-32.2) 01/10/20 07:50 MCHC 33.3 g/dl (32.2-35.5) 01/10/20 07:50 RDW Std Deviation 49.2 fL (36.4-46.3) H 01/10/20 07:50 Plt Count 226 K/mm3 (182-369) 01/10/20 07:50 MPV 10.1 fl (9.4-12.3) 01/10/20 07:50 Creatinine 0.8 mg/dL (0.55-1.02) 01/10/20 07:50 Est Cr Clr Drug Dosing TNP 01/10/20 07:50 Estimated GFR (MDRD) > 60 mL/min (>60) 01/10/20 07:50 AST 11 U/L (15-37) L 01/10/20 07:50 ALT 17 U/L (14-59) 01/10/20 07:50 Blood Type A POSITIVE 01/10/20 07:50 Gel Antibody Screen Negative 01/10/20 07:50 - Allergies Allergies/Adverse Reactions: Allergies Allergy/AdvReac Type Severity Reaction Status Date / Time cat dander Allergy Sneezing Verified 12/30/19 17:14 - Blood Blood Available: No - Acknowledgements Anesthesia Type Planned: Epidural Pt an Appropriate Candidate for the Planned Anesthesia: Yes Alternatives and Risks of Anesthesia Discussed w Pt/Guardian: Yes Pt/Guardian Understands and Agrees with Anesthesia Plan: Yes PreAnesthesia Questionnaire - Past Health History Medical/Surgical History: Denies Medical/Surgical History Cardiovascular History: Reports: None Respiratory History: Reports: Asthma (sports induced) Gastrointestinal History: Reports: GERD (with preg) 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) Para: 2 Musculoskeletal History: Reports: Other (See Below) Other Musculoskeletal History: Peroneal neuropathy at knee Psychiatric History: Reports: Anxiety (history), Eating Disorders - Infectious Disease History Infectious Disease History: Reports: None - Past Surgical History Musculoskeletal Surgical History: Reports: None, Other (See Below) (hand sugery) - SUBSTANCE USE Smoking Status *Q: Never Smoker Tobacco Use Within Last Twelve Months: No Second Hand Smoke Exposure: No Days Per Week of Alcohol Use: 0 Recreational Drug Use History: No - HOME MEDS Home Medications: Home Meds Pnv No.95/Ferrous Fum/Folic AC [ Vitamin Tablet] 1 tab PO DAILY [History] Aspirin 81 mg PO DAILY 12/30/19 [History] - CURRENT (IN HOUSE) MEDS Current Meds: Current Medications Acetaminophen (Tylenol) 650 mg PO Q4H PRN PRN Reason: Pain (Mild 1-3) and fever Diphenhydramine HCl (Benadryl) 25 mg IVPUSH Q6H PRN PRN Reason: pruritis Ephedrine Sulfate (Ephedrine Sulfate) 5 mg IVPUSH ASDIRECTED PRN PRN Reason: Hypotension Fentanyl (Sublimaze) 100 mcg EPIDUR Q3H PRN PRN Reason: Pain Fentanyl/Bupivacaine HCl (Fentanyl/Bupivacaine/Ns 2 Mcg-0.125% 100 Ml) 100 ml EPIDUR ASDIRECTED PRN PRN Reason: Pain Lactated Ringer's (Ringers, Lactated) 1,000 mls @ 40 mls/hr IV ASDIRECTED VELVET Last Admin: 01/10/20 08:20 Dose: 40 mls/hr Oxytocin/Lactated Ringer's (Pitocin In Lr 10 Units/1,000 Ml) 10 unit in 1,000 mls @ 12 mls/hr IV TITRATE VELVET; Protocol Last Admin: 01/10/20 08:21 Dose: 2 munits/min, 12 mls/hr Oxytocin/Lactated Ringer's (Pitocin In Lr 10 Units/1,000 Ml) 10 unit in 1,000 mls @ 500 mls/hr IV .CONTINUOUS VELVET Ondansetron HCl (Zofran) 4 mg IVPUSH Q4H PRN PRN Reason: Nausea/Vomiting Sodium Chloride (Saline Flush) 10 ml FLUSH ASDIRECTED PRN PRN Reason: Keep Vein Open
[2020-01-10] MEDS: Bupivacaine/fentaNYL/NS 100 ML Bag EPIDUR PRN ×2 (12:42→18:48)
--- NOTE | 2020-01-10 21:13 | PCM.DEL ---
L & D Note - General Info Date of Service: 01/10/20 - Delivery Note Labor: Induced by ARM, Induced by Oxytocin Delivery Outcome: Livebirth Infant Delivery Method: Spontaneous Vaginal Delivery-Single Infant Delivery Mode: Spontaneous Presentation: Right Occiput Posterior (ROP) Nuchal Cord: None Anesthesia Type: Epidural Amniotic Fluid Description: Clear Episiotomy Type: None Laceration: 1st Degree Suture type: Vicryl Suture size: 2-0 Placenta: Intact, Spontaneous Cord: 3 Vessels Estimated Blood Loss: 200 Resuscitation Needed: Yes Plummer: Bulb Syringe, Stimulated, Warmed, Elmore Used, Warmer Used Delivery Comments (Free Text/Narrative):: Patient found to be complete and began pushing. With pushing effort head delivered from ROP presentation. No nuchal cord present. With gentle downward traction shoulders and body delivered. Infant placed on maternal abdomen. Cord clamped and cut. Cord blood obtained. Placenta allowed time to separate and expelled intact. Inspection of perineum showed a 1st degree laceration which was repaired with a 2-0 vicryl in the typical fashion. - General Info Date of Service: 01/11/20 - Patient Data Weight - Most Recent: 78.471 kg - Problem List & Annotations (1) 37 weeks gestation of SNOMED Code(s): 60628782 Code(s): Z3A.37 - 37 WEEKS GESTATION OF Status: Acute Current Visit: Yes (2) Preeclampsia SNOMED Code(s): 028494881 Code(s): O14.90 - UNSPECIFIED PRE-ECLAMPSIA, UNSPECIFIED TRIMESTER Status: Acute Current Visit: Yes Qualifiers: Trimester: third trimester Qualified Code(s): O14.93 - Unspecified pre- eclampsia, third trimester (3) Rubella non-immune status, antepartum SNOMED Code(s): 070513459 Code(s): O99.89 - OTH DISEASES AND CONDITIONS COMPL PREG/CHLDBRTH; Z28.3 - UNDERIMMUNIZATION STATUS Status: Acute Current Visit: Yes (4) Vaginal delivery SNOMED Code(s): 542393035 Code(s): O80 - ENCOUNTER FOR FULL-TERM UNCOMPLICATED DELIVERY Status: Acute Current Visit: No - Problem List Review Problem List Initiated/Reviewed/Updated: Yes - My Orders Last 24 Hours: My Active Orders 01/10/20 07:08 Patient Status [ADT] Routine Communication Order [RC] ASDIRECTED Communication Order [RC] ASDIRECTED Communication Order [RC] ASDIRECTED Monitoring [RC] INTERMITTENT Non Stress Test [RC] PER UNIT ROUTINE Notify Provider [RC] ASDIRECTED Notify Provider [RC] PRN Vaginal Exam [RC] ASDIRECTED Vital Signs [RC] ASDIRECTED Acetaminophen [Tylenol] 650 mg PO Q4H PRN Ondansetron [Zofran] 4 mg IVPUSH Q4H PRN Sodium Chloride 0.9% [Saline Flush] 10 ml FLUSH ASDIRECTED PRN Electronic Heart Tones Ext w TOCO [WOMSER] Routine Electronic Heart Tones Internal [WOMSER] Per Unit Routine Peripheral IV Insertion Adult [OM.PC] Routine Resuscitation Status Routine 01/10/20 07:09 Heart Tones [RC] ASDIRECTED Up ad Jamila [RC] ASDIRECTED 01/10/20 07:15 Lactated Ringers [Ringers, Lactated] 1,000 ml IV ASDIRECTED Oxytocin/Lactated Ringers [Pitocin in LR 10 Units/1,000 ML] 10 unit in 1,000 ml IV .CONTINUOUS Oxytocin/Lactated Ringers [Pitocin in LR 10 Units/1,000 ML] 10 unit in 1,000 ml IV TITRATE 01/10/20 08:55 PATIENT RETYPE [BBK] Routine 01/10/20 Breakfast Regular Diet [DIET] - Assessment Assessment:: PPD#0 - Plan Plan:: * Monitor BP's closely * Routine cares * breast feeding * Discharge home in 1-2 days
[2020-01-10] MEDS ORDERED: Benzocaine/Menthol 20%-0.5% Spray 56 GM Canister TOP PRN (21:28)
[2020-01-10] MEDS ORDERED: Docusate Sodium 100 MG Cap PO PRN (21:28)
[2020-01-10] MEDS ORDERED: Witch Hazel Medicated Pads 40/Jar TOP PRN (21:28)
--- NOTE | 2020-01-11 07:38 | PCM.PNPP ---
- General Info Date of Service: 01/11/20 Functional Status: Reports: Pain Controlled, Tolerating Diet, Ambulating, Urinating - Review of Systems General: Reports: No Symptoms Pulmonary: Reports: No Symptoms Cardiovascular: Reports: No Symptoms Gastrointestinal: Reports: No Symptoms Genitourinary: Reports: No Symptoms Musculoskeletal: Reports: No Symptoms Neurological: Reports: No Symptoms Psychiatric: Reports: No Symptoms - General Info Date of Service: 01/11/20 - Patient Data Vital Signs - Most Recent: Last Vital Signs Temp 36.4 C 01/11/20 03:05 Pulse 69 01/11/20 03:05 Resp 14 01/11/20 03:05 BP 115/76 01/11/20 03:05 Pulse Ox 98 01/11/20 03:05 Weight - Most Recent: 78.471 kg I&O - Last 24 Hours: Intake & Output 01/10/20 01/11/20 01/11/20 22:59 06:59 14:59 Intake Total 2200 1000 Output Total 500 Balance 1700 1000 Lab Results - Last 24 Hours: Laboratory Results - last 24 hr 01/10/20 01/10/20 01/10/20 Range/Units 07:08 07:50 07:50 WBC 11.35 H (3.98-10.04) K/mm3 RBC 4.43 (3.98-5.22) M/mm3 Hgb 13.9 (11.2-15.7) gm/dl Hct 41.8 (34.1-44.9) % MCV 94.4 (79.4-94.8) fl MCH 31.4 (25.6-32.2) pg MCHC 33.3 (32.2-35.5) g/dl RDW Std Deviation 49.2 H (36.4-46.3) fL Plt Count 226 (182-369) K/mm3 MPV 10.1 (9.4-12.3) fl Creatinine 0.8 (0.55-1.02) mg/dL Est Cr Clr Drug Dosing TNP Estimated GFR (MDRD) > 60 (>60) mL/min AST 11 L (15-37) U/L ALT 17 (14-59) U/L Ur Random Creatinine (30.0-125.0) mg/dL U Random Total Protein (0.0-11.8) mg/dL Protein/Creatinin Ratio (0-149) mg/g RPR Non-reactive (NONREACTIVE) Blood Type Gel Antibody Screen 01/10/20 01/10/20 Range/Units 07:50 09:50 WBC (3.98-10.04) K/mm3 RBC (3.98-5.22) M/mm3 Hgb (11.2-15.7) gm/dl Hct (34.1-44.9) % MCV (79.4-94.8) fl MCH (25.6-32.2) pg MCHC (32.2-35.5) g/dl RDW Std Deviation (36.4-46.3) fL Plt Count (182-369) K/mm3 MPV (9.4-12.3) fl Creatinine (0.55-1.02) mg/dL Est Cr Clr Drug Dosing Estimated GFR (MDRD) (>60) mL/min AST (15-37) U/L ALT (14-59) U/L Ur Random Creatinine 77.8 (30.0-125.0) mg/dL U Random Total Protein 17.4 H (0.0-11.8) mg/dL Protein/Creatinin Ratio 223.7 H (0-149) mg/g RPR (NONREACTIVE) Blood Type A POSITIVE Gel Antibody Screen Negative Med Orders - Current: Current Medications Acetaminophen (Tylenol) 650 mg PO Q4H PRN PRN Reason: mild pain or fever Benzocaine/Menthol (Dermoplast Pain Relief [place]) 0 gm TOP ASDIRECTED PRN PRN Reason: Perineal Comfort Measure Last Admin: 01/10/20 23:17 Dose: 1 applic Docusate Sodium (Colace) 100 mg PO BID PRN PRN Reason: Constipation Ibuprofen (Motrin) 600 mg PO Q6H PRN PRN Reason: Mild pain or fever Witch Gabby (Tucks) 1 pad TOP ASDIRECTED PRN PRN Reason: Perineal Comfort Measure Last Admin: 01/10/20 23:17 Dose: 1 applic Discontinued Medications Acetaminophen (Tylenol) 650 mg PO Q4H PRN PRN Reason: Pain (Mild 1-3) and fever Diphenhydramine HCl (Benadryl) 25 mg IVPUSH Q6H PRN PRN Reason: pruritis Ephedrine Sulfate (Ephedrine Sulfate) 5 mg IVPUSH ASDIRECTED PRN PRN Reason: Hypotension Fentanyl (Sublimaze) 100 mcg EPIDUR Q3H PRN PRN Reason: Pain Last Admin: 01/10/20 12:41 Dose: 100 mcg Fentanyl/Bupivacaine HCl (Fentanyl/Bupivacaine/Ns 2 Mcg-0.125% 100 Ml) 100 ml EPIDUR ASDIRECTED PRN PRN Reason: Pain Last Admin: 01/10/20 18:48 Dose: 100 ml Lactated Ringer's (Ringers, Lactated) 1,000 mls @ 40 mls/hr IV ASDIRECTED VELVET Last Admin: 01/10/20 13:14 Dose: 40 mls/hr Oxytocin/Lactated Ringer's (Pitocin In Lr 10 Units/1,000 Ml) 10 unit in 1,000 mls @ 12 mls/hr IV TITRATE VELVET; Protocol Last Titration: 01/10/20 20:58 Dose: 500 mls/hr Oxytocin/Lactated Ringer's (Pitocin In Lr 10 Units/1,000 Ml) 10 unit in 1,000 mls @ 500 mls/hr IV .CONTINUOUS VELVET Ondansetron HCl (Zofran) 4 mg IVPUSH Q4H PRN PRN Reason: Nausea/Vomiting Sodium Chloride (Saline Flush) 10 ml FLUSH ASDIRECTED PRN PRN Reason: Keep Vein Open - Interaction Disposition, : [place] to Nursery Infant Feeding: Attempted ; Nursed Fair/Poor Support Person: - Recovery Exam Fundal Tone: Firm Fundal Level: 1 Fingerbreadths Below Umbilicus Fundal Placement: Midline Lochia Amount: Small Lochia Color: Rubra/Red Perineum Description: Other (see below) Other Perinuem Description: 1st degree with repair Episiotomy/Laceration: Approximated Bladder Status: Voiding Urinary Elimination: Voided - Exam General: Alert, Oriented, Cooperative GI/Abdominal Exam: Soft, Non-Tender Extremities: Normal Inspection Skin: Warm, Dry, Intact - Problem List & Annotations (1) 37 weeks gestation of SNOMED Code(s): 97618080 Code(s): Z3A.37 - 37 WEEKS GESTATION OF Status: Acute Current Visit: Yes (2) Preeclampsia SNOMED Code(s): 473248182 Code(s): O14.90 - UNSPECIFIED PRE-ECLAMPSIA, UNSPECIFIED TRIMESTER Status: Acute Current Visit: Yes Qualifiers: Trimester: third trimester Qualified Code(s): O14.93 - Unspecified pre- eclampsia, third trimester (3) Rubella non-immune status, antepartum SNOMED Code(s): 942916689 Code(s): O99.89 - OTH DISEASES AND CONDITIONS COMPL PREG/CHLDBRTH; Z28.3 - UNDERIMMUNIZATION STATUS Status: Acute Current Visit: Yes (4) Vaginal delivery SNOMED Code(s): 782272239 Code(s): O80 - ENCOUNTER FOR FULL-TERM UNCOMPLICATED DELIVERY Status: Acute Current Visit: No - Problem List Review Problem List Initiated/Reviewed/Updated: Yes - My Orders Last 24 Hours: My Active Orders 01/10/20 07:08 Monitoring [RC] INTERMITTENT Vaginal Exam [RC] ASDIRECTED Resuscitation Status Routine 01/10/20 07:09 Heart Tones [RC] ASDIRECTED 01/10/20 21:28 Activity as Tolerated [RC] PER UNIT ROUTINE Vital Signs [RC] 03,,, Acetaminophen [Tylenol] 650 mg PO Q4H PRN Benzocaine/Menthol [Dermoplast Pain Relief [place]] See Dose Instructions TOP ASDIRECTED PRN Docusate Sodium [Colace] 100 mg PO BID PRN Ibuprofen [Motrin] 600 mg PO Q6H PRN witch Gabby [Tucks] 1 pad TOP ASDIRECTED PRN Assess Lochia [WOMSER] Per Unit Routine Assess Uterine Involution [WOMSER] Per Unit Routine Breast Pump [WOMSER] Per Unit Routine Heat Therapy [OM.PC] PRN Ice Therapy [OM.PC] Per Unit Routine Medication Administration Instruction [OM.PC] Routine Perineal Care [OM.PC] Per Unit Routine Peripheral IV Discontinue [OM.PC] Routine Sitz Bath [OM.PC] Per Unit Routine 01/10/20 Dinner Regular Diet [DIET] 01/11/20 21:28 Heat Therapy [OM.PC] PRN - Assessment Assessment:: PPD#1 - Plan Plan:: * Monitor BP's closely, have been normal since delivery * Routine cares * breast feeding * Discharge home tomorrow * MMR prior to discharge
--- NOTE | 2020-01-11 09:57 | PCM48HPAN ---
Post Anesthesia Note - EVALUATION WITHIN 48HRS OF ANESTHETIC Vital Signs in Normal Range: Yes Patient Participated in Evaluation: Yes Respiratory Function Stable: Yes Airway Patent: Yes Cardiovascular Function Stable: Yes Hydration Status Stable: Yes Pain Control Satisfactory: Yes Nausea and Vomiting Control Satisfactory: Yes Mental Status Recovered: Yes Vital Signs: Last Vital Signs Temp 36.9 C 01/11/20 07:47 Pulse 83 01/11/20 07:47 Resp 16 01/11/20 07:47 BP 118/83 01/11/20 07:47 Pulse Ox 96 01/11/20 07:47
[2020-01-11] MEDS: Ibuprofen 600 MG Tab PO PRN ×2 (17:11→17:20)
[2020-01-11] MEDS ORDERED: Measles, Mumps & Rubella Vaccine 0.5 ML SDV SUBCUT ONE (17:30)
[2020-01-12] MEDS: Ibuprofen 600 MG Tab PO PRN (05:04)
[2020-01-12 08:51] VITALS: BP 124/75; PULSE 67
--- NOTE | 2020-01-12 08:57 | PCM.PNPP ---
- General Info Date of Service: 01/12/20 Functional Status: Reports: Pain Controlled, Tolerating Diet, Ambulating, Urinating - Review of Systems General: Reports: No Symptoms Pulmonary: Reports: No Symptoms Cardiovascular: Reports: No Symptoms Gastrointestinal: Reports: No Symptoms Genitourinary: Reports: No Symptoms Musculoskeletal: Reports: No Symptoms Neurological: Reports: No Symptoms - Patient Data Vital Signs - Most Recent: Last Vital Signs Temp 36.7 C 01/12/20 08:41 Pulse 67 01/12/20 08:41 Resp 14 01/12/20 08:41 BP 124/75 01/12/20 08:41 Pulse Ox 99 01/12/20 08:41 Weight - Most Recent: 78.471 kg I&O - Last 24 Hours: Intake & Output 01/11/20 01/12/20 01/12/20 22:59 06:59 14:59 Intake Total 320 Balance 320 Med Orders - Current: Current Medications Acetaminophen (Tylenol) 650 mg PO Q4H PRN PRN Reason: mild pain or fever Benzocaine/Menthol (Dermoplast Pain Relief [place]) 0 gm TOP ASDIRECTED PRN PRN Reason: Perineal Comfort Measure Last Admin: 01/10/20 23:17 Dose: 1 applic Docusate Sodium (Colace) 100 mg PO BID PRN PRN Reason: Constipation Last Admin: 01/11/20 20:41 Dose: 100 mg Ibuprofen (Motrin) 600 mg PO Q6H PRN PRN Reason: Mild pain or fever Last Admin: 01/12/20 05:04 Dose: 600 mg Witch Gauri (Tucks) 1 pad TOP ASDIRECTED PRN PRN Reason: Perineal Comfort Measure Last Admin: 01/10/20 23:17 Dose: 1 applic Discontinued Medications Acetaminophen (Tylenol) 650 mg PO Q4H PRN PRN Reason: Pain (Mild 1-3) and fever Bupivacaine HCl (Sensorcaine-Mpf 0.25%) 10 ml .ROUTE .STK-MED ONE Stop: 01/10/20 00:01 Diphenhydramine HCl (Benadryl) 25 mg IVPUSH Q6H PRN PRN Reason: pruritis Ephedrine Sulfate (Ephedrine Sulfate) 5 mg IVPUSH ASDIRECTED PRN PRN Reason: Hypotension Fentanyl (Sublimaze) 100 mcg EPIDUR Q3H PRN PRN Reason: Pain Last Admin: 01/10/20 12:41 Dose: 100 mcg Fentanyl/Bupivacaine HCl (Fentanyl/Bupivacaine/Ns 2 Mcg-0.125% 100 Ml) 100 ml EPIDUR ASDIRECTED PRN PRN Reason: Pain Last Admin: 01/10/20 18:48 Dose: 100 ml Lactated Ringer's (Ringers, Lactated) 1,000 mls @ 40 mls/hr IV ASDIRECTED VELVET Last Admin: 01/10/20 13:14 Dose: 40 mls/hr Oxytocin/Lactated Ringer's (Pitocin In Lr 10 Units/1,000 Ml) 10 unit in 1,000 mls @ 12 mls/hr IV TITRATE VELVET; Protocol Last Titration: 01/10/20 20:58 Dose: 500 mls/hr Oxytocin/Lactated Ringer's (Pitocin In Lr 10 Units/1,000 Ml) 10 unit in 1,000 mls @ 500 mls/hr IV .CONTINUOUS VLEVET Measles/Mumps/Rubella Vaccine Live (M-M-R Ii Vaccine) 0.5 ml SUBCUT .ONCE ONE Stop: 01/11/20 17:31 Last Admin: 01/11/20 17:23 Dose: 0.5 ml Ondansetron HCl (Zofran) 4 mg IVPUSH Q4H PRN PRN Reason: Nausea/Vomiting Sodium Chloride (Saline Flush) 10 ml FLUSH ASDIRECTED PRN PRN Reason: Keep Vein Open - Infant Interaction Disposition, : in Room with Family Infant Interaction: Holding Feeding: Breastfed ; Nursed Well Support Person: - Recovery Exam Fundal Tone: Firm Fundal Level: 2 Fingerbreadths Below Umbilicus Fundal Placement: Midline Lochia Amount: Small Lochia Color: Rubra/Red Perineum Description: Intact, Minimal Bruising/Swelling Other Perinuem Description: 1st degree with repair Episiotomy/Laceration: Approximated Bladder Status: Voiding Urinary Elimination: Voided - Exam General: Alert, Oriented, Cooperative GI/Abdominal Exam: Soft, Non-Tender Extremities: Normal Inspection Skin: Warm, Dry, Intact - Problem List & Annotations (1) 37 weeks gestation of SNOMED Code(s): 22802396 Code(s): Z3A.37 - 37 WEEKS GESTATION OF Status: Acute Current Visit: Yes (2) Preeclampsia SNOMED Code(s): 934499596 Code(s): O14.90 - UNSPECIFIED PRE-ECLAMPSIA, UNSPECIFIED TRIMESTER Status: Acute Current Visit: Yes Qualifiers: Trimester: third trimester Qualified Code(s): O14.93 - Unspecified pre- eclampsia, third trimester (3) Rubella non-immune status, antepartum SNOMED Code(s): 398886967 Code(s): O99.89 - OTH DISEASES AND CONDITIONS COMPL PREG/CHLDBRTH; Z28.3 - UNDERIMMUNIZATION STATUS Status: Acute Current Visit: Yes (4) Vaginal delivery SNOMED Code(s): 611777159 Code(s): O80 - ENCOUNTER FOR FULL-TERM UNCOMPLICATED DELIVERY Status: Acute Current Visit: No - Problem List Review Problem List Initiated/Reviewed/Updated: Yes - My Orders Last 24 Hours: My Active Orders 01/11/20 21:28 Heat Therapy [OM.PC] PRN 01/12/20 08:57 Ready for Discharge [RC] PER UNIT ROUTINE - Assessment Assessment:: PPD#2 - Plan Plan:: * Monitor BP's closely, have been normal . Follow up in office in 2 weeks * Routine cares * breast feeding * Discharge home today * MMR prior to discharge
--- NOTE | 2020-01-12 08:58 | PCM.DCSUM1 ---
Discharge Summary - Discharge Data Discharge Date: 01/12/20 Discharge Disposition: Home, Self-Care 01 Condition: Good - Referral to Home Health Primary Care Physician: Janeen Sahu MD - Discharge Diagnosis/Problem(s) (1) 37 weeks gestation of SNOMED Code(s): 36227014 ICD Code: Z3A.37 - 37 WEEKS GESTATION OF Status: Acute Current Visit: Yes (2) Preeclampsia SNOMED Code(s): 493219641 ICD Code: O14.90 - UNSPECIFIED PRE-ECLAMPSIA, UNSPECIFIED TRIMESTER Status : Acute Current Visit: Yes Qualifiers: Trimester: third trimester Qualified Code(s): O14.93 - Unspecified pre- eclampsia, third trimester (3) Rubella non-immune status, antepartum SNOMED Code(s): 176260012 ICD Code: O99.89 - OTH DISEASES AND CONDITIONS COMPL PREG/CHLDBRTH; Z28.3 - UNDERIMMUNIZATION STATUS Status: Acute Current Visit: Yes (4) Vaginal delivery SNOMED Code(s): 514615815 ICD Code: O80 - ENCOUNTER FOR FULL-TERM UNCOMPLICATED DELIVERY Status: Acute Current Visit: No - Patient Summary/Data Complications: None Consults: None Recommended Follow-up Testing/Procedures: Follow up in 2 weeks Hospital Course: 34 y/o at 37 0/7 wks who presented for IOL for gestational HTN. Induction done with pitocin and AROM. Progressed well to complete dilation and underwent an uncomplicated . See delivery note. During IOL and BP's essentially all normal range even though had been high in clinic previously. Discharged home on PPD#2 - Patient Instructions Diet: Regular Diet as Tolerated Activity: As Tolerated Activity, Other: Pelvic Rest for 6 weeks Driving: May Drive Today Showering/Bathing: May Shower Showering/Bathing, Other: May Bathe Notify Provider of: Fever, Increased Pain, Swelling and Redness, Drainage, Nausea and/or Vomiting - Discharge Plan *PRESCRIPTION DRUG MONITORING PROGRAM REVIEWED*: No *COPY OF PRESCRIPTION DRUG MONITORING REPORT IN PATIENT BELÉN: No Home Medications: Home Meds Pnv No.95/Ferrous Fum/Folic AC [ Vitamin Tablet] 1 tab PO DAILY [History] Ibuprofen [Motrin] 600 mg PO Q6H PRN tablet 01/11/20 [Rx] Patient Handouts: Hypertension During , [id number], Hypertension, Care After Vaginal Delivery Referrals: Janeen Sahu MD [Primary Care Provider] - (2 weeks for BP check) - Discharge Summary/Plan Comment DC Time >30 min.: No - Patient Data Vitals - Most Recent: Last Vital Signs Temp 36.7 C 01/12/20 08:41 Pulse 67 01/12/20 08:41 Resp 14 01/12/20 08:41 BP 124/75 01/12/20 08:41 Pulse Ox 99 01/12/20 08:41 Weight - Most Recent: 78.471 kg I&O - Last 24 hours: Intake & Output 01/11/20 01/12/20 01/12/20 22:59 06:59 14:59 Intake Total 320 Balance 320 Med Orders - Current: Current Medications Acetaminophen (Tylenol) 650 mg PO Q4H PRN PRN Reason: mild pain or fever Benzocaine/Menthol (Dermoplast Pain Relief [place]) 0 gm TOP ASDIRECTED PRN PRN Reason: Perineal Comfort Measure Last Admin: 01/10/20 23:17 Dose: 1 applic Docusate Sodium (Colace) 100 mg PO BID PRN PRN Reason: Constipation Last Admin: 01/11/20 20:41 Dose: 100 mg Ibuprofen (Motrin) 600 mg PO Q6H PRN PRN Reason: Mild pain or fever Last Admin: 01/12/20 05:04 Dose: 600 mg Witch Gauri (Tucks) 1 pad TOP ASDIRECTED PRN PRN Reason: Perineal Comfort Measure Last Admin: 01/10/20 23:17 Dose: 1 applic Discontinued Medications Acetaminophen (Tylenol) 650 mg PO Q4H PRN PRN Reason: Pain (Mild 1-3) and fever Bupivacaine HCl (Sensorcaine-Mpf 0.25%) 10 ml .ROUTE .STK-MED ONE Stop: 01/10/20 00:01 Diphenhydramine HCl (Benadryl) 25 mg IVPUSH Q6H PRN PRN Reason: pruritis Ephedrine Sulfate (Ephedrine Sulfate) 5 mg IVPUSH ASDIRECTED PRN PRN Reason: Hypotension Fentanyl (Sublimaze) 100 mcg EPIDUR Q3H PRN PRN Reason: Pain Last Admin: 03/17/20 12:41 Dose: 100 mcg Fentanyl/Bupivacaine HCl (Fentanyl/Bupivacaine/Ns 2 Mcg-0.125% 100 Ml) 100 ml EPIDUR ASDIRECTED PRN PRN Reason: Pain Last Admin: 01/10/20 18:48 Dose: 100 ml Lactated Ringer's (Ringers, Lactated) 1,000 mls @ 40 mls/hr IV ASDIRECTED VELVET Last Admin: 01/10/20 13:14 Dose: 40 mls/hr Oxytocin/Lactated Ringer's (Pitocin In Lr 10 Units/1,000 Ml) 10 unit in 1,000 mls @ 12 mls/hr IV TITRATE VELVET; Protocol Last Titration: 01/10/20 20:58 Dose: 500 mls/hr Oxytocin/Lactated Ringer's (Pitocin In Lr 10 Units/1,000 Ml) 10 unit in 1,000 mls @ 500 mls/hr IV .CONTINUOUS VELVET Measles/Mumps/Rubella Vaccine Live (M-M-R Ii Vaccine) 0.5 ml SUBCUT .ONCE ONE Stop: 01/11/20 17:31 Last Admin: 01/11/20 17:23 Dose: 0.5 ml Ondansetron HCl (Zofran) 4 mg IVPUSH Q4H PRN PRN Reason: Nausea/Vomiting Sodium Chloride (Saline Flush) 10 ml FLUSH ASDIRECTED PRN PRN Reason: Keep Vein Open
== END 2020-01-12 10:00 | disposition home or self-care (01) | DRG 560 ==
LOC: JD.OB 07:07 → OBSVTOIN 20:57 → JD.OB 20:57
PROVIDERS: ADMIT Obstetrics & Gynecology; ATTEND Obstetrics & Gynecology
PROC: 10E0XZZ Delivery of Products of Conception, External Approach (ICD-10-PCS; principal; 2020-01-10)
PROC: 10907ZC Drainage of Amniotic Fluid, Therapeutic from Products of Conception, Via Natural or Artificial Opening (ICD-10-PCS; 2020-01-10)
PROC: 3E033VJ Introduction of Other Hormone into Peripheral Vein, Percutaneous Approach (ICD-10-PCS; 2020-01-10)
PROC: 0HQ9XZZ Repair Perineum Skin, External Approach (ICD-10-PCS; 2020-01-10)
PROC: 3E0R3BZ Introduction of Anesthetic Agent into Spinal Canal, Percutaneous Approach (ICD-10-PCS; 2020-01-10)
PROC: 3E0234Z Introduction of Serum, Toxoid and Vaccine into Muscle, Percutaneous Approach (ICD-10-PCS; 2020-01-11)
DX: O13.4 Gestational [pregnancy-induced] hypertension without significant proteinuria, complicating childbirth (principal); O70.0 First degree perineal laceration during delivery; Z3A.37 37 weeks gestation of pregnancy; Z37.0 Single live birth; Z79.899 Other long term (current) drug therapy; Z91.09 Other allergy status, other than to drugs and biological substances; Z79.82 Long term (current) use of aspirin; Z23 Encounter for immunization
CPT/HCPCS: 01967; 36415; 51702; 59025; 59409; 82565; 82570; 84156; 84450; 84460; 85027; 86592; 86850; 86900; 86901; 90471; 90707; A9270-GY; J2590; J3010; J3490; J7120

== ENCOUNTER 2022-07-01 09:00 | Emergency (ER) | payer BC ==
[2022-07-01 09:15] VITALS: BP 135/72; PULSE 81
[2022-07-01] MEDS ORDERED: Sodium Chloride 0.9% 10 ML Syringe FLUSH PRN (09:44)
[2022-07-01] MEDS ORDERED: Ondansetron 4 MG/2 ML SDV IVPUSH ONE (09:44)
[2022-07-01] MEDS ORDERED: Sodium Chloride 0.9% 1,000 ML IV SCH (09:45)
[2022-07-01] MEDS ORDERED: Famotidine 20 MG/2 ML SDV IVPUSH ONE (09:48)
[2022-07-01 11:13] LABS: ESTIMATED GFR 98 mL/min (>60)
[2022-07-01] MEDS ORDERED: Alum Hydrox/Mag Hydrox/Simeth 30 ML, Lidocaine 2% 15 ML PO ONE ×2 (11:44)
== END 2022-07-01 12:15 | disposition home or self-care (01) ==
LOC: JD.ED 09:00
DX: R07.89 Other chest pain (principal); R42 Dizziness and giddiness; R11.2 Nausea with vomiting, unspecified; R00.2 Palpitations; Z91.09 Other allergy status, other than to drugs and biological substances
CPT/HCPCS: 36415; 70450; 80053; 81025; 83690; 84484; 85025; 93005; 93225; 93226; 96361; 96374; 96375; 99285; A9270; J2405; J3490; J7030

== ENCOUNTER 2022-07-03 12:55 | Emergency (ER) | payer BC ==
[2022-07-03 13:07] VITALS: BP 125/94
[2022-07-03 13:15] VITALS: PULSE 101
[2022-07-03] MEDS ORDERED: LORazepam 1 MG Tab PO ONE (13:28)
[2022-07-03] MEDS ORDERED: Ondansetron 4 MG Tab.DIS PO ONE (14:23)
== END 2022-07-03 15:40 | disposition home or self-care (01) ==
LOC: JD.ED 12:55
DX: F41.9 Anxiety disorder, unspecified (principal); Z91.048 Other nonmedicinal substance allergy status; Z79.899 Other long term (current) drug therapy
CPT/HCPCS: 99283; A9270

== ENCOUNTER 2023-10-10 21:02 | Inpatient (IN) | payer BC ==
[~2023-10-10 21:02] MED LIST changes: -Bupivacaine 0.25% 10 ML SDV ONE; +Lidocaine 1% 10 ML MDV ONE
[2023-10-10] MEDS ORDERED: Ondansetron 4 MG/2 ML SDV IVPUSH PRN (21:41)
[2023-10-10] MEDS ORDERED: Nalbuphine HCl 10 MG/ 1ML Amp IVPUSH PRN (21:41)
[2023-10-10] MEDS ORDERED: Lidocaine 1% 50 ML MDV INJECT PRN (21:41)
[2023-10-10] MEDS ORDERED: Calcium Carbonate 500 MG Tab.Chew PO PRN (21:41)
[2023-10-10] MEDS ORDERED: Acetaminophen 325 MG Tab PO PRN (21:41)
[2023-10-10 22:01] LABS: BASOPHILS ABSOLUTE AUTO 0.1 K/mm3 (0.0-0.2); BASOPHILS PERCENT AUTO 0.4 % (0.0-1.0); EOSINOPHILS ABSOLUTE AUTO 0.1 K/mm3 (0.0-0.4); EOSINOPHILS PERCENT AUTO 0.6 % (0.0-6.0); HEMATOCRIT 35.7 % (37.0-47.0); HEMOGLOBIN 12.2 gm/dl (12.0-16.0); IMMATURE GRAN PERCENT AUTO 0.9 % (0.0-0.4); LYMPHOCYTES PERCENT AUTO 17.8 % (24.0-44.0); MEAN CORPUSCULAR HEMOGLOBIN 30.3 pg (28.0-32.0); MEAN CORPUSCULAR HGB CONC 34.2 g/dl (32.0-36.0); MEAN CORPUSCULAR VOLUME 88.6 fl (83.0-99.0); MEAN PLATELET VOLUME 11.1 fl (9.4-12.3); MONOCYTES ABSOLUTE AUTO 0.9 K/mm3 (0.0-0.8); MONOCYTES PERCENT AUTO 7.7 % (0.0-8.0); NEUTROPHILS ABSOLUTE AUTO 8.3 K/mm3 (1.8-7.7); NEUTROPHILS PERCENT AUTO 72.6 % (41.0-71.0); PLATELET COUNT,PLT 203 K/mm3 (150-400); RED BLOOD CELL COUNT 4.03 M/mm3 (4.10-5.30); WHITE BLOOD CELL COUNT,WBC 11.42 K/mm3 (3.9-11.3)
[2023-10-10 22:17] LABS: CREATININE,URINE RAND 82.2 mg/dL (30.0-125.0); PROTEIN,URINE RANDOM 244.3 mg/dL (0.0-11.8)
[2023-10-10 22:25] LABS: A/G RATIO 0.6 (1-2); ALBUMIN 2.4 g/dl (3.4-5.0); ANION GAP 16.9 (5-15); BILIRUBIN TOTAL 0.2 mg/dL (0.2-1.0); BUN/CREATININE RATIO 11.8 (14-18); CREATININE 1.1 mg/dL (0.55-1.02); EST CRCL DRUG DOSING (CG) 66.19 mL/min; POTASSIUM,K 3.9 mEq/L (3.5-5.1); PROTEIN TOTAL,TP 6.5 g/dl (6.4-8.2)
[2023-10-10] MEDS ORDERED: Oxytocin/Lactated Ringers 30 UNIT/500 ML BAG IV SCH (23:30)
[2023-10-10] MEDS: Lactated Ringers 1,000 ML IV SCH (23:34)
[2023-10-10] MEDS ORDERED: fentaNYL 100 MCG/2 ML SDV EPIDUR PRN (23:46)
[2023-10-10] MEDS ORDERED: ePHEDrine 50 MG/ML SDV IVPUSH PRN (23:46)
[2023-10-10] MEDS ORDERED: Bupivacaine/fentaNYL/NS 100 ML Bag EPIDUR PRN (23:46)
[2023-10-10] MEDS ORDERED: diphenhydrAMINE 50 MG/ML SDV IVPUSH PRN (23:46)
[2023-10-11] MEDS: Lactated Ringers 1,000 ML IV SCH (00:21)
[2023-10-11] MEDS ORDERED: Magnesium Hydroxide 400 MG/5 ML Susp 30 ML Cup PO PRN (01:58)
[2023-10-11] MEDS ORDERED: Ibuprofen 600 MG Tab PO PRN (01:58)
[2023-10-11] MEDS ORDERED: Witch Hazel Medicated Pads 40/Jar TOP PRN (01:58)
[2023-10-11] MEDS ORDERED: Acetaminophen 325 MG Tab PO PRN (01:58)
[2023-10-11] MEDS ORDERED: Benzocaine/Menthol 20%-0.5% Spray 78 GM Cannister TOP PRN (01:58)
[2023-10-11] MEDS ORDERED: Docusate Sodium 100 MG Cap PO PRN (01:58)
[2023-10-11] MEDS ORDERED: Hydrocortisone Acetate 25 MG Supp RECTAL PRN (01:58)
[2023-10-11] MEDS ORDERED: Prenatal Multivitamin with Calcium/Folic Acid/Iron Tab PO SCH (09:00)
[2023-10-11] MEDS ORDERED: Sertraline 50 MG Tab PO SCH ×2 (09:00→15:00)
[2023-10-12 10:49] VITALS: BP 117/77; PULSE 70
== END 2023-10-12 11:16 | disposition home or self-care (01) | DRG 560 ==
LOC: JD.OBCHECK 21:02 → JD.OB 21:07 → JD.OBCHECK 23:27 → JD.OB 23:28 → OBSVTOIN 10-11 01:10 → JD.OB 10-11 01:11
PROVIDERS: ADMIT Obstetrics & Gynecology; ATTEND Obstetrics & Gynecology
PROC: 10E0XZZ Delivery of Products of Conception, External Approach (ICD-10-PCS; principal; 2023-10-11)
PROC: 3E0R3BZ Introduction of Anesthetic Agent into Spinal Canal, Percutaneous Approach (ICD-10-PCS; 2023-10-11)
PROC: 00HU33Z Insertion of Infusion Device into Spinal Canal, Percutaneous Approach (ICD-10-PCS; 2023-10-11)
PROC: 0HQ9XZZ Repair Perineum Skin, External Approach (ICD-10-PCS; 2023-10-11)
PROC: 3E033VJ Introduction of Other Hormone into Peripheral Vein, Percutaneous Approach (ICD-10-PCS; 2023-10-11)
DX: O14.04 Mild to moderate pre-eclampsia, complicating childbirth (principal); O42.02 Full-term premature rupture of membranes, onset of labor within 24 hours of rupture; O70.0 First degree perineal laceration during delivery; F41.9 Anxiety disorder, unspecified; O99.344 Other mental disorders complicating childbirth; Z37.0 Single live birth; Z3A.37 37 weeks gestation of pregnancy
CPT/HCPCS: 01967; 36415; 59025; 59409; 80053; 82570; 83615; 84156; 85025; 86592; 86850; 86900; 86901; A9270-GY; J3010; J3490; J7120; J7999